=== PATIENT | female | born 1965 | race American Indian/Alaskan Native ===

== ENCOUNTER 2021-03-24 15:56 | Emergency (ER) | payer OTHER ==
[2021-03-24] MEDS ORDERED: CYCLOBENZAPRINE 10 MG TAB PO ONE (17:15)
[2021-03-24] MEDS ORDERED: IBUPROFEN 600 MG TAB PO ONE (17:15)
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
[2021-03-24 18:26] VITALS: BP 132/78
--- NOTE | 2021-03-25 12:53 | Electrocardiograph Report ---
[facility] Test Date: 2021-03-24 Test Time: 17:43:53 Pat Name: RIVAS HATHAWAY Department: Room: Gender: F [facility] Manager: SHLOMO : 1965 Requested By: MARISELA LUI Order Number: [id number] Reading MD: Kamari Lind Measurements Intervals [place] Rate: 53 P: 59 [place]: 177 QRS: 49 QRSD: 85 T: 37 QT: 445 QTc: 418 Interpretive Statements Sinus bradycardia No previous ECG available for comparison Electronically Signed On 03-25-2021 12:52:50 EST by Kamari Lind
== END 2021-03-24 18:43 | disposition home or self-care (01) ==
LOC: ED 15:56
DX: R07.89 Other chest pain (principal); F41.9 Anxiety disorder, unspecified; E78.00 Pure hypercholesterolemia, unspecified; Z88.8 Allergy status to other drugs, medicaments and biological substances; Z79.899 Other long term (current) drug therapy; V87.7XXA Person injured in collision between other specified motor vehicles (traffic), initial encounter; Y93.89 Activity, other specified; Y92.488 Other paved roadways as the place of occurrence of the external cause; Y99.8 Other external cause status
CPT/HCPCS: 71046; 93005; 99283